=== PATIENT | male | born 1950 | race Caucasian/White ===

== ENCOUNTER 2021-05-17 01:03 | Emergency (ER) | payer MEDICARE ==
--- NOTE | 2021-05-17 01:33 | EDM.PDOC ---
ED HPI GENERAL MEDICAL PROBLEM - General Stated Complaint: HEAD LAC Time Seen by Provider: 05/17/21 01:15 Source of Information: Reports: [facility] Records History Limitations: Reports: No Limitations - History of Present Illness INITIAL COMMENTS - FREE TEXT/NARRATIVE: 70-year-old gentleman visiting from out of town and staying at a local hotel was unfamiliar with the room and tripped in the dark going to the bathroom and fell down at struck his rib cage on the right side and he thinks that he hit his head on the toilet paper mccoy. Did not lose consciousness but he did have pain and bleeding from his forehead and pain in his right rib cage. He is otherwise in good health has no complaints. He takes a baby aspirin daily but no other antiplatelets or anticoagulants. ED ROS GENERAL - Review of Systems Review Of Systems: See Below Constitutional: Reports: No Symptoms HEENT: Reports: Other (Contusion to the forehead with laceration) Respiratory: Reports: No Symptoms Cardiovascular: Reports: No Symptoms Endocrine: Reports: No Symptoms GI/Abdominal: Reports: No Symptoms : Reports: No Symptoms Musculoskeletal: Reports: Other (Rib pain) Skin: Reports: Bruising, Wound Neurological: Reports: No Symptoms Psychiatric: Reports: No Symptoms Hematologic/Lymphatic: Reports: No Symptoms Immunologic: Reports: No Symptoms ED EXAM, HEAD INJURY - Physical Exam Exam: See Below Exam Limited By: No Limitations General Appearance: Alert, WD/WN, No Apparent Distress Head: Facial Abrasions, Facial Ecchymosis, Facial Tenderness, Other (There is a small area of avulsion of the skin of the forehead, square-shaped, approximately 2 cm x 2 cm, ecchymosis, mild edema and swelling just inferior and above the medial aspect of the left eyebrow) Nexus Criteria: No: Evidence of Intoxication, Altered Level of Consciousness, Focal Neurological Deficit, Painful Distraction Injuries Eyes: Bilateral Eye: EOMI, PERRL Neck: Non-Tender Respiratory: No Respiratory Distress, Lungs Clear, Normal Breath Sounds Cardiovascular: Regular Rate, Rhythm, No Murmur GI/Abdominal Exam: Normal Bowel Sounds, Other (Visual inspection of the abdomen and rib cage shows no obvious deformity, ecchymosis, swelling, mild tenderness to palpation over the right middle axillary line approximately T4-T8) Back Exam: Normal Inspection. 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 No: Abnormal Cerebellar Tests Skin: Other (Lesion to the forehead as described above) - [place] Coma Score Best Eye Response ([place]): (4) Open Spontaneously Best Verbal Response ([place]): (5) Oriented Best Motor Response ([place]): (6) Obeys Commands [place] Total: 15 Course - Vital Signs Text/Narrative:: The abrasion on the forehead was thoroughly cleaned, no debris. The skin was secured with Dermabond. Departure - Departure Time of Disposition: 01:46 Disposition: Home, Self-Care 01 Condition: Good Clinical Impression: Head trauma, Laceration - Discharge Information *PRESCRIPTION DRUG MONITORING PROGRAM REVIEWED*: Not Applicable *COPY OF PRESCRIPTION DRUG MONITORING REPORT IN PATIENT TRISH: Not Applicable Instructions: Head Injury, Adult, Laceration Care, Adult Additional Instructions: I advised the patient to try to keep the area clean. Advised him to return to the hospital if he has signs and symptoms of concussion such as change in vision, headache, photophobia, altered mental status or if he has difficulty breathing or increased pain in his ribs.
== END 2021-05-17 01:55 | disposition home or self-care (01) ==
LOC: FB.ED 01:03
DX: S01.81XA Laceration without foreign body of other part of head, initial encounter (principal); W01.0XXA Fall on same level from slipping, tripping and stumbling without subsequent striking against object, initial encounter
CPT/HCPCS: 12011; 99282-25